=== PATIENT | female | born 1980 | race Hispanic/Latino ===

== ENCOUNTER 2023-06-22 23:13 | Emergency (ER) | payer OTHER ==
[~2023-06-22] VITALS: Ht 154.9 cm; Wt 98.4 kg
[2023-06-22 23:42] LABS: RAPID GROUP A STREP negative (NEGATIVE)
[2023-06-22 23:50] LABS: SARS-CoV-2, RNA, NAAT NEGATIVE SARS CoV-2 (NEGATIVE)
[2023-06-22 23:51] LABS: INFLUENZA TYPE A Negative For Type A (NEGATIVE); INFLUENZA TYPE B Negative For Type B (NEGATIVE)
[2023-06-23] MEDS: LORATADINE/PSEUDOEPHED 5/120 MG 1 EACH TAB.SR.12H PO SCH
[2023-06-23] MEDS ORDERED: PSEUDOEPHEDRINE HCL 30 MG TAB PO SCH
[2023-06-23] MEDS ORDERED: LORA-868 PO (00:08)
[2023-06-23] MEDS ORDERED: IBUP-2077 PO (00:08)
[2023-06-23] MEDS ORDERED: CORTSOL AS (00:15)
[2023-06-23] MEDS: IBUPROFEN 800 MG TAB PO ONE (00:17)
[2023-06-23] MEDS: PSEUDOEPHEDRINE HCL 30 MG TAB PO SCH (00:17)
[2023-06-23] MEDS: ACETAMINOPHEN WITH CODEINE 1 TAB TAB PO ONE (00:38)
[2023-06-23 00:41] VITALS: BP 142/92; PULSE 88; RESP 16; O2SAT 99
== END 2023-06-23 00:42 | disposition home or self-care (01) ==
LOC: EDH 23:13
DX: J06.9 Acute upper respiratory infection, unspecified (principal); H92.02 Otalgia, left ear; I10 Essential (primary) hypertension; E11.9 Type 2 diabetes mellitus without complications; E78.00 Pure hypercholesterolemia, unspecified; Z20.822 Contact with and (suspected) exposure to COVID-19; Z90.89 Acquired absence of other organs; Z98.890 Other specified postprocedural states
CPT/HCPCS: 87635; 87804; 87880

== ENCOUNTER 2023-06-29 11:04 | Emergency (ER) | payer OTHER ==
[~2023-06-29] VITALS: Ht 154.9 cm; Wt 98.0 kg
[~2023-06-29 11:04] MED LIST: CORTSOL AS; IBUP-2077 PO; LORA-868 PO
[2023-06-29 13:45] LABS: BASOPHILS # (AUTO) 0.07 K/uL (0.00-0.20); BASOPHILS % (AUTO) 0.6 % (0.0-5.0); EOSINOPHILS # (AUTO) 0.31 K/uL (0.00-0.70); EOSINOPHILS % (AUTO) 2.7 % (0.0-8.0); HEMATOCRIT 43.1 % (36-48); LYMPHOCYTES # (AUTO) 3.6 K/uL (1.0-4.8); LYMPHOCYTES % (AUTO) 31.6 % (21.0-51.0); MEAN CORPUSCULAR HEMOGLOBIN 30.1 pg (27.0-33.0); MEAN CORPUSCULAR HGB CONC 34.1 g/dL (32.0-36.0); MEAN CORPUSCULAR VOLUME 88.1 fL (79-99); MONOCYTES # (AUTO) 0.8 K/uL (0.1-1.0); MONOCYTES % (AUTO) 7.3 % (3.0-13.0); NEUTROPHILS # (AUTO) 6.5 K/uL (1.8-7.7); NEUTROPHILS % (AUTO) 56.9 % (40.0-77.0); PLATELET COUNT (AUTO) 377 K/uL (130-400); RED BLOOD CELL COUNT(AUTO) 4.89 MIL/uL (4.00-5.50); RED CELL DISTRIBUTION WIDTH 13.2 % (11.0-15.5); WHITE BLOOD COUNT (AUTO) 11.5 K/uL (4.8-10.8)
[2023-06-29 13:57] LABS: CREATININE 0.5 mg/dL (0.5-1.0)
[2023-06-29 14:01] LABS: APPEARANCE,URINE CLEAR (CLEAR); BILIRUBIN,URINE NEGATIVE (NEGATIVE); COLOR,URINE LIGHT-YELLOW (YELLOW); GLUCOSE, URINE (UA) 300 mg/dL (NEGATIVE); KETONES,URINE NEGATIVE (NEGATIVE); LEUKOCYTE ESTERASE ,URINE NEGATIVE Leu/uL (NEGATIVE); NITRATE,URINE NEGATIVE (NEGATIVE); PH,URINE 6.5 (5.0-8.0); PROTEIN,URINE NEGATIVE (NEGATIVE); UROBILINOGEN,URINE 0.2 mg/dL (0.2-1.0)
[2023-06-29 14:02] LABS: BILIRUBIN,TOTAL 0.4 mg/dL (0.2-1.0); MAGNESIUM 2.1 mg/dL (1.80-2.40); TOTAL PROTEIN, SERUM 8.1 g/dL (6.0-8.3)
[2023-06-29 14:03] LABS: HCG,QUALITATIVE URINE NEGATIVE (NEGATIVE)
[2023-06-29 14:05] LABS: ADD UA MICROSCOPIC YES
[2023-06-29 14:08] LABS: MUCUS,URINE RARE LPF (None Seen); SQUAMOUS EPITHELIAL CELL,UR RARE /HPF (0-2); WBC,URINE 0-1 /HPF (0-1)
[2023-06-29 14:14] LABS: B-TYPE NATRIURETIC PEPTIDE < 5 pg/mL (0-100)
[2023-06-29] MEDS ORDERED: LOSA25TA41 PO (15:14)
[2023-06-29] MEDS ORDERED: ATOR40TA69 PO (15:14)
[2023-06-29 15:21] VITALS: BP 141/88; PULSE 80; RESP 16; O2SAT 97
== END 2023-06-29 15:26 | disposition home or self-care (01) ==
LOC: EDH 11:04
DX: F41.9 Anxiety disorder, unspecified (principal); Z76.0 Encounter for issue of repeat prescription; I10 Essential (primary) hypertension; E11.9 Type 2 diabetes mellitus without complications; E78.00 Pure hypercholesterolemia, unspecified; E66.9 Obesity, unspecified; Z87.59 Personal history of other complications of pregnancy, childbirth and the puerperium; Z98.51 Tubal ligation status; Z90.89 Acquired absence of other organs; Z98.890 Other specified postprocedural states
CPT/HCPCS: 36415; 71045; 80053; 81001; 81025; 83735; 83880; 84484; 85025; 93005

== ENCOUNTER 2023-11-10 22:38 | Emergency (ER) | payer MEDICAID ==
[~2023-11-10] VITALS: Ht 154.9 cm; Wt 97.1 kg
[~2023-11-10 22:38] MED LIST changes: +ATOR40TA69 PO; +LOSA25TA41 PO
[2023-11-10 23:32] LABS: BASOPHILS # (AUTO) 0.07 K/uL (0.00-0.20); BASOPHILS % (AUTO) 0.6 % (0.0-5.0); EOSINOPHILS # (AUTO) 0.21 K/uL (0.00-0.70); EOSINOPHILS % (AUTO) 1.9 % (0.0-8.0); HEMATOCRIT 39.6 % (36-48); IMMATURE GRANULOCYTE ABSOLUTE 0.11 K/uL (0-1); LYMPHOCYTES # (AUTO) 1.7 K/uL (1.0-4.8); LYMPHOCYTES % (AUTO) 14.8 % (21.0-51.0); MEAN CORPUSCULAR HEMOGLOBIN 31.4 pg (27.0-33.0); MEAN CORPUSCULAR HGB CONC 35.6 g/dL (32.0-36.0); MEAN CORPUSCULAR VOLUME 88.2 fL (79-99); MONOCYTES # (AUTO) 0.8 K/uL (0.1-1.0); MONOCYTES % (AUTO) 7.2 % (3.0-13.0); NEUTROPHILS # (AUTO) 8.4 K/uL (1.8-7.7); NEUTROPHILS % (AUTO) 74.5 % (40.0-77.0); PLATELET COUNT (AUTO) 344 K/uL (130-400); RED BLOOD CELL COUNT(AUTO) 4.49 MIL/uL (4.00-5.50); RED CELL DISTRIBUTION WIDTH 12.4 % (11.0-15.5); WHITE BLOOD COUNT (AUTO) 11.3 K/uL (4.8-10.8)
[2023-11-10 23:50] LABS: ALBUMIN 3.4 g/dL (3.5-5.0); BILIRUBIN,TOTAL 0.5 mg/dL (0.2-1.0); CREATININE 0.7 mg/dL (0.5-1.0); POTASSIUM 3.8 mmol/L (3.5-5.1); TOTAL PROTEIN, SERUM 7.2 g/dL (6.0-8.3)
[2023-11-10] MEDS: LACTATED RINGERS 1000ML 957 ML IV ONE (23:50)
[2023-11-10] MEDS: PROCHLORPERAZINE 10MG/2ML INJ IV ONE (23:50)
[2023-11-10] MEDS: DiphenhydrAMINE HCL 50 MG/ML VIAL IV ONE (23:50)
[2023-11-10] MEDS: KETOROLAC 30MG VIAL (30MG/ML) IVP ONE (23:50)
[2023-11-10 23:53] LABS: ADD UA MICROSCOPIC YES; APPEARANCE,URINE CLEAR (CLEAR); BILIRUBIN,URINE NEGATIVE (NEGATIVE); COLOR,URINE LIGHT-YELLOW (YELLOW); GLUCOSE, URINE (UA) NEGATIVE (NEGATIVE); KETONES,URINE NEGATIVE (NEGATIVE); LEUKOCYTE ESTERASE ,URINE NEGATIVE Leu/uL (NEGATIVE); NITRATE,URINE NEGATIVE (NEGATIVE); OCCULT BLOOD,URINE MODERATE (NEGATIVE); PROTEIN,URINE NEGATIVE (NEGATIVE); UROBILINOGEN,URINE 0.2 mg/dL (0.2-1.0)
[2023-11-10 23:54] LABS: BACTERIA,URINE RARE /HPF (None Seen); MUCUS,URINE RARE LPF (None Seen); SQUAMOUS EPITHELIAL CELL,UR RARE /HPF (0-2); WBC,URINE 0-1 /HPF (0-1)
[2023-11-11 01:00] VITALS: BP 124/86; PULSE 74; RESP 20; O2SAT 97
== END 2023-11-11 01:01 | disposition home or self-care (01) ==
LOC: EDH 22:38
DX: U07.1 COVID-19 (principal); R51.9 Headache, unspecified; I10 Essential (primary) hypertension; E11.9 Type 2 diabetes mellitus without complications; E78.00 Pure hypercholesterolemia, unspecified; Z79.899 Other long term (current) drug therapy; Z90.89 Acquired absence of other organs; Z98.890 Other specified postprocedural states
CPT/HCPCS: 99284; 96374; 96375; 96361; 80053; 85025; 81001; 36415; J7120; J1200; J0780; J1885

== ENCOUNTER 2023-12-15 23:09 | Emergency (ER) | payer MEDICAID ==
[~2023-12-15] VITALS: Ht 154.9 cm; Wt 97.1 kg
[2023-12-15 23:29] LABS: BASOPHILS # (AUTO) 0.11 K/uL (0.00-0.20); BASOPHILS % (AUTO) 0.8 % (0.0-5.0); EOSINOPHILS # (AUTO) 0.39 K/uL (0.00-0.70); EOSINOPHILS % (AUTO) 2.9 % (0.0-8.0); HEMATOCRIT 41.8 % (36-48); IMMATURE GRANULOCYTE ABSOLUTE 0.13 K/uL (0-1); LYMPHOCYTES # (AUTO) 4.9 K/uL (1.0-4.8); LYMPHOCYTES % (AUTO) 36.9 % (21.0-51.0); MEAN CORPUSCULAR HEMOGLOBIN 30.5 pg (27.0-33.0); MEAN CORPUSCULAR HGB CONC 34.2 g/dL (32.0-36.0); MEAN CORPUSCULAR VOLUME 89.1 fL (79-99); MONOCYTES # (AUTO) 0.8 K/uL (0.1-1.0); NEUTROPHILS % (AUTO) 52.4 % (40.0-77.0); PLATELET COUNT (AUTO) 361 K/uL (130-400); RED BLOOD CELL COUNT(AUTO) 4.69 MIL/uL (4.00-5.50); RED CELL DISTRIBUTION WIDTH 12.9 % (11.0-15.5); WHITE BLOOD COUNT (AUTO) 13.3 K/uL (4.8-10.8)
[2023-12-15 23:35] LABS: CREATININE 0.7 mg/dL (0.5-1.0); POTASSIUM 3.6 mmol/L (3.5-5.1)
[2023-12-15 23:39] LABS: INR 0.99 (0.85-1.15); PROTHROMBIN TIME 10.7 SEC (9.6-11.6)
[2023-12-15 23:40] LABS: PARTIAL THROMBOPLASTIN TIME 25.6 SEC (26.3-35.5)
[2023-12-16 00:06] LABS: B-TYPE NATRIURETIC PEPTIDE < 5 pg/mL (0-100)
[2023-12-16 00:21] LABS: APPEARANCE,URINE CLEAR (CLEAR); BILIRUBIN,URINE NEGATIVE (NEGATIVE); COLOR,URINE LIGHT-YELLOW (YELLOW); GLUCOSE, URINE (UA) NEGATIVE (NEGATIVE); KETONES,URINE NEGATIVE (NEGATIVE); LEUKOCYTE ESTERASE ,URINE NEGATIVE Leu/uL (NEGATIVE); NITRATE,URINE NEGATIVE (NEGATIVE); OCCULT BLOOD,URINE SMALL (NEGATIVE); PROTEIN,URINE NEGATIVE (NEGATIVE); UROBILINOGEN,URINE 0.2 mg/dL (0.2-1.0)
[2023-12-16 00:25] LABS: ADD UA MICROSCOPIC YES; BACTERIA,URINE None Seen /HPF (None Seen); SQUAMOUS EPITHELIAL CELL,UR Rare /HPF (0-2); WBC,URINE 0-1 /HPF (0-1)
[2023-12-16 00:26] LABS: MUCUS,URINE Rare LPF (None Seen)
[2023-12-16 00:30] LABS: HCG,QUALITATIVE URINE NEGATIVE (NEGATIVE)
[2023-12-16 00:49] LABS: AMPHET/METH SCREEN,URINE NEGATIVE (NEGATIVE); BARBITURATE SCREEN, URINE NEGATIVE (NEGATIVE); BENZODIAZEPINES SCREEN,URINE NEGATIVE (NEGATIVE); CANNABINOID SCREEN,URINE NEGATIVE (NEGATIVE); COCAINE SCREEN,URINE NEGATIVE (NEGATIVE); OPIATE SCREEN,URINE NEGATIVE (NEGATIVE); PHENCYCLIDINE SCREEN,URINE NEGATIVE (NEGATIVE)
[2023-12-16] MEDS: ketOROlac 30MG VIAL (30MG/ML) IVP ONE (00:57)
[2023-12-16] MEDS: 0.9%NACL 1000ML 1,000 ML IV ONE (00:57)
[2023-12-16 02:26] VITALS: BP 138/81; PULSE 92; RESP 18; TEMP 98.3; O2SAT 99
== END 2023-12-16 02:27 | disposition home or self-care (01) ==
LOC: EDH 23:09
DX: R00.2 Palpitations (principal); Z20.822 Contact with and (suspected) exposure to COVID-19; D72.829 Elevated white blood cell count, unspecified; E11.65 Type 2 diabetes mellitus with hyperglycemia; R07.89 Other chest pain; R06.02 Shortness of breath; F41.9 Anxiety disorder, unspecified; R06.00 Dyspnea, unspecified; R05.9 Cough, unspecified; E11.9 Type 2 diabetes mellitus without complications; I10 Essential (primary) hypertension; E78.00 Pure hypercholesterolemia, unspecified; E66.9 Obesity, unspecified; Z68.30 Body mass index [BMI] 30.0-30.9, adult; F17.210 Nicotine dependence, cigarettes, uncomplicated; Z98.890 Other specified postprocedural states; Z90.89 Acquired absence of other organs
CPT/HCPCS: 99285; 71045; 87426; 83735; 84484; 80048; 83880; 80305; 85025; 85610; 85730; 81025; 36415; 93005; 81001; 96374; J7030; J1885

== ENCOUNTER 2024-02-07 06:58 | Day surgery (SDC) | payer MEDICAID ==
[2024-02-03 08:57] LABS: BASOPHILS # (AUTO) 0.06 K/uL (0.00-0.20); BASOPHILS % (AUTO) 0.6 % (0.0-5.0); EOSINOPHILS # (AUTO) 0.31 K/uL (0.00-0.70); EOSINOPHILS % (AUTO) 3.2 % (0.0-8.0); HEMATOCRIT 41.6 % (36-48); IMMATURE GRANULOCYTE ABSOLUTE 0.06 K/uL (0-1); LYMPHOCYTES # (AUTO) 2.6 K/uL (1.0-4.8); LYMPHOCYTES % (AUTO) 27.1 % (21.0-51.0); MEAN CORPUSCULAR HEMOGLOBIN 30.1 pg (27.0-33.0); MEAN CORPUSCULAR HGB CONC 33.9 g/dL (32.0-36.0); MEAN CORPUSCULAR VOLUME 88.7 fL (79-99); MONOCYTES # (AUTO) 0.5 K/uL (0.1-1.0); MONOCYTES % (AUTO) 5.5 % (3.0-13.0); PLATELET COUNT (AUTO) 391 K/uL (130-400); RED BLOOD CELL COUNT(AUTO) 4.69 MIL/uL (4.00-5.50); WHITE BLOOD COUNT (AUTO) 9.6 K/uL (4.8-10.8)
[2024-02-03 09:00] VITALS: BP 129/73; PULSE 78; RESP 19; TEMP 98.2
[2024-02-07] VITALS (20 sets, daily range): BP systolic 112–143; BP diastolic 49–94; PULSE 63–85; RESP 10–20; TEMP 97.1–97.7
[~2024-02-07] VITALS: Ht 154.9 cm; Wt 93.6 kg
[~2024-02-07 06:58] MED LIST changes: +ALBU18HF7 IH; -ATOR40TA69 PO; -CORTSOL AS; +ERGO500093 PO; -IBUP-2077 PO; +LAMO25TA9 PO; -LORA-868 PO; +METF-444 PO; +SERT-439 PO
[2024-02-07] MEDS: ceFAZolin SODIUM 2 GM VIAL IVPB SCH (07:00)
[2024-02-07 07:47] LABS: CREATININE 0.5 mg/dL (0.5-1.0); POTASSIUM 4.1 mmol/L (3.5-5.1)
[2024-02-07] MEDS ORDERED: BUPIvacaine HCL/EPINEPHrine/PF 0.25% 10ML VIAL IJ ONE (07:51)
[2024-02-07] MEDS: 0.9%NACL 1000ML 1,000 ML IV ONE (07:56)
[2024-02-07] MEDS: ceFAZolin SODIUM 2 GM VIAL ONE (07:56)
[2024-02-07] MEDS ORDERED: FAMOTIDINE 20MG VIAL IV ONE (09:38)
[2024-02-07] MEDS ORDERED: acetaMINOPHEN 100 ML ONE (09:38)
[2024-02-07] MEDS ORDERED: ketaMINE 50MG/ML SYRINGE 50 MG/ML DISP.SYRIN ONE (09:39)
[2024-02-07] MEDS ORDERED: LIDOCAINE PF 100MG/5ML (2%) SYRINGE 5ML ONE (09:39)
[2024-02-07] MEDS ORDERED: proPOFol 10 MG/ML 20ML VIAL IV ONE (09:39)
[2024-02-07] MEDS ORDERED: rocuRONium bROMide 10MG/1ML 5ML VL ONE ×2 (09:40→10:41)
[2024-02-07] MEDS ORDERED: FENTanyl CITRate PF 50 MCG/1 ML 2ML VIAL ONE (09:40)
[2024-02-07] MEDS ORDERED: dexaMETHasone SOD PHOSPHATE 10MG/ML 1ML VIAL ONE (09:50)
[2024-02-07] MEDS ORDERED: ondanSETRON 4MG INJ ONE (09:51)
[2024-02-07] MEDS: ceFAZolin SODIUM 2 GM VIAL IVPB ONE (10:00)
[2024-02-07] MEDS ORDERED: TRAM-543 PO (10:03)
[2024-02-07] MEDS ORDERED: GLYCOPYRROLATE 0.2 MG/ML 5 ML VIAL ONE (10:55)
[2024-02-07] MEDS ORDERED: NEOSTIGMINE METHYLSULFATE 1MG/ML IV ONE (10:55)
[2024-02-07] MEDS ORDERED: SUGAMMADEX SODIUM 200 MG/2 ML VIAL IV ONE (11:05)
[2024-02-07] MEDS: FENTanyl CITRate PF 50 MCG/1 ML 2ML VIAL ONE (11:33)
[2024-02-07] MEDS: MEPERIDINE-PF 25 MG/ML SYG ONE (11:41)
--- NOTE | 2024-02-07 12:20 | OP ---
Operative Note: DATE OF PROCEDURE: 02/07/24 SURGEON: GEETA KANG MD ENGRAVER APPRENTICE DECORATIVE: [[facility] [place] staff] ANESTHESIA: [General] PREOPERATIVE DIAGNOSIS: [Symptomatic cholelithiasis] POSTOPERATIVE DIAGNOSIS: [Symptomatic cholelithiasis] SYNOPSIS: [Extremely large fatty bulky liver, central obesity] PROCEDURE: [Laparoscopic cholecystectomy] ESTIMATED BLOOD LOSS: [10 mL] INDICATIONS: [This is a 43-year-old female with symptomatic cholelithiasis. Imaging studies confirmed the diagnosis. A laparoscopic cholecystectomy was indicated. Prior to the procedure informed consent was obtained which included a discussion about bleeding, infection, bile leak, bile duct injury and injury to surrounding viscera.] DESCRIPTION OF PROCEDURE: [The patient was taken to the operating room and placed on the operating table in supine position. Next, general anesthesia was induced and they were intubated. Their abdomen was prepped and draped in a sterile fashion. Afterwards a timeout was called. The patient's identity, procedure, preoperative antibiotics and SCDs were all confirmed. I insufflated the abdomen with a Veress needle. Next, I entered the intra-abdominal cavity through a 12 mm epigastric incision using a 12 mm Optiview port with a 0 degree 10 mm scope. I placed a 3 additional ports in the following configuration: A 5 mm supraumbilical port and two 5 mm right subcostal ports. Next, I proceeded to remove the gallbladder. I used a harmonic scalpel to dissect the gallbladder off the liver bed fossa in a dome down fashion. I dissected down to the infundibulum. I skeletonized the cystic duct. The cystic artery was taken with the harmonic scalpel. I identified my critical my critical angle. I used PDS Endoloop to encircle the cystic duct. I transected the cystic duct with the harmonic scalpel and placed the specimen in an Endo Catch bag. The specimen was passed off. I inspected the gallbladder fossa. No active bleeding was seen. I closed the correction the pneumoperitoneum was evacuated. The skin incisions were closed with 4-0 Monocryl. 0.25% percent Marcaine with epinephrine was injected into the incision sites. Dermabond was applied. The sponge needle instrument counts were accurate. The patient was extubated and taken to recovery room in stable condition.] GEETA KANG MD Feb 07, 2024 12:20
--- NOTE | 2024-02-07 13:49 | NUR ---
Patient aox4. Denies c/o pain or discomfort. Surgical dressing clean, dry and intact. Voiced understanding to surgical site precautions and follow up expectations. Ambulated to bathroom with standby assist. Voided large amount of clear urine. PIV discontinued with catheter tip intact. Patient emotional lashing out and cursing at . Emotional support provided. He remained quiet. Full and complete Discharge instructions given to Patient and . All questions answered. W/C to POV with to Home.
== END 2024-02-07 13:40 | disposition home or self-care (01) ==
LOC: DAH 06:58
PROVIDERS: ATTEND Surgery
DX: K80.10 Calculus of gallbladder with chronic cholecystitis without obstruction (principal); K76.0 Fatty (change of) liver, not elsewhere classified; G47.33 Obstructive sleep apnea (adult) (pediatric); I10 Essential (primary) hypertension; E11.9 Type 2 diabetes mellitus without complications; F31.9 Bipolar disorder, unspecified; F41.9 Anxiety disorder, unspecified; E78.00 Pure hypercholesterolemia, unspecified; Z86.73 Personal history of transient ischemic attack (TIA), and cerebral infarction without residual deficits; Z90.89 Acquired absence of other organs; Z79.899 Other long term (current) drug therapy
CPT/HCPCS: 84703; 85025; 36415 ×2; 47562; 88304; 80048; 82948 ×2; 81025; A6260; A4663; J7030 ×2; A4215 ×2; J3010 ×2; J1100; J3490 ×5; J2003; J2405; J2710; J2175; J0690 ×2; A4649; A4222; A4221; A4216 ×2; A4223 ×2; A4600; S0028; J2704

== ENCOUNTER 2024-12-08 14:59 | Emergency (ER) | payer SELFPAY ==
[~2024-12-08] VITALS: Ht 154.9 cm; Wt 93.4 kg
[~2024-12-08 14:59] MED LIST changes: +LAMO-23 PO; -LAMO25TA9 PO; +TRAM-543 PO
[2024-12-08 15:53] LABS: HCG,QUALITATIVE URINE NEGATIVE (NEGATIVE)
[2024-12-08 16:00] LABS: GLUCOSE, URINE (UA) 50 mg/dL (NEGATIVE); LEUKOCYTE ESTERASE ,URINE 500 Leu/uL (NEGATIVE); NITRATE,URINE NEGATIVE (NEGATIVE); OCCULT BLOOD,URINE SMALL (NEGATIVE); SQUAMOUS EPITHELIAL CELL,UR MANY /HPF (0-2)
[2024-12-08 16:01] LABS: APPEARANCE,URINE HAZY (CLEAR)
[2024-12-08 16:08] LABS: IMMATURE GRANULOCYTE ABSOLUTE 0.09 K/uL (0-1); NUCLEATED RED BLOOD CELLS 0.0 % (0.0-0.19); PLATELET COUNT (AUTO) 351 K/uL (130-400); RED BLOOD CELL COUNT(AUTO) 4.81 MIL/uL (4.00-5.50); RED CELL DISTRIBUTION WIDTH 12.9 % (11.0-15.5); WHITE BLOOD COUNT (AUTO) 15.1 K/uL (4.8-10.8)
[2024-12-08 16:15] LABS: CREATININE 0.6 mg/dL (0.5-1.0); GLOMERULAR FILTR. RATE CALC 113.0 mL/min (>90); GLUCOSE,RANDOM 129.0 mg/dL (70-105); SODIUM SERUM 139.0 mmol/L (136-145); UREA NITROGEN, BLOOD 8.0 mg/dL (7-18)
--- NOTE | 2024-12-08 16:38 | ERN ---
General Chief Complaint: Multiple Complaints Stated Complaint: UTI SYMPTOMS AND LT KNEE PAIN Time Seen by MD: 15:04 Source: patient History of Present Illness Initial Comments Patient is a 44-year-old female coming in with multiple complaints. Per patient she has been having dysuria for a couple of days. Along with the she states that two days ago she bent over got up felt the pop in her knee. Also states that she has been having previous issues hernia that Allergies: Coded Allergies: chlorhexidine (Unverified Adverse Reaction, Unknown, SWELLING, 02/07/24) glycerin (Unverified Adverse Reaction, Unknown, SWELLING, 02/07/24) hydroxyethylcellulose (Unverified Adverse Reaction, Unknown, SWELLING, 02/07/24) Home Meds Active Scripts Tramadol HCl/Acetaminophen (Tramadol-Acetaminophn 37.5-325) 37.5 Mg-325 Mg T ablet, 1 TAB PO Q4HPRN PRN for pain for 2 Days, #12 TAB 0 Refills Prov:GEETA KANG MD 02/07/24 Losartan Potassium (Losartan Potassium) 25 Mg Tablet, 25 MG PO DAILY for 14 Days, #14 TAB Prov:JUAN M DOMINGUEZ 06/29/23 Reported Medications Albuterol Sulfate (Ventolin Hfa) 90 Mcg Hfa.aer.ad, 2 PUFF IH Q4HPRN PRN for wheezing for 30 Days, #18 GM 0 Refills 02/03/24 Sertraline HCl (Sertraline HCl) 50 Mg Tablet, 50 MG PO HS, TAB 02/03/24 Ergocalciferol (Vitamin D2) (Vitamin D2) 1,250 Mcg (18744 Unit) Capsule, 1 CAP PO QWEEK for 28 Days, #4 CAP 0 Refills 02/03/24 Metformin HCl (Metformin HCl) 500 Mg Tablet, 1 TAB PO BID for 30 Days, #60 TAB 0 Refills 02/03/24 Lamotrigine (Lamotrigine) 25 Mg Tablet, 25 MG PO PM, TAB 02/03/24 Past Medical History Past Medical History: Anxiety, Bipolar, Diabetes-Type II, High Cholesterol, Hypertension Medical History Other: obesity Past Surgical History: Hysterectomy, Tonsillectomy, Cholecystectomy, Surgical History Other: ECTOPIC Family History Family History: Negative Social History Social History: Smokers, Lives with family Female( History) History: Not Applicable ROS Dictation CONSTITUTIONAL: No chills, no fever, no weakness, no diaphoresis, no malaise. HEAD/FACE: No signs of trauma. EENT: No eye pain, no blurred vision, no tearing, no double vision, no ear pain, no ear discharge, no nose pain, no nasal congestion, no throat pain, no throat swelling, no mouth pain. RESPIRATORY: No cough, no orthopnea, no SOB, no stridor, no wheezing. CARDIOVASCULAR: No chest pain, no edema, no palpitations, no syncope. GASTROINTESTINAL/ABDOMINAL: No abdominal pain, no constipation, no diarrhea, no nausea, no vomiting. GENITOURINARY: No abnormal discharge, no dysuria, no frequent urination, no hematuria. No complaints of pain in the genitals. MUSCULOSKELETAL: No back pain, no gout, joint pain, no joint swelling, no muscle pain, no muscle stiffness, no neck pain. INTEGUMENTARY: No change in color, no change in hair/nails, no dryness, no lesion, no lumps, no rash. NEUROLOGICAL/PSYCH: No anxiety, not depressed, no emotional problem, no headache, no numbness, no pre-existing deficit, no history of seizures, no tremors, no weakness. HEMATOLOGIC/LYMPHATIC: Not anemic, no history of blood clots, no apparent bleeding, no bruising, glands not swollen. All Systems Negative, Except as Noted. Physical Exam Physical Exam Dictation VITAL SIGNS: Reviewed. GENERAL APPEARANCE: Alert, oriented x3, no acute distress, obese. HEAD AND FACE: Non-traumatic. EYES: PERRL, pink conjunctivas, eyelid no trauma, anterior chamber clear. EARS: Pinnas intact and no signs of trauma or erythema. Ear canals clear and no discharge. TMs no erythema. NOSE: No discharge, no bleeding. OROPHARYNX: Mouth normal, teeth no caries, tongue pink. Pharynx clear, no erythema. Tonsils no exudates, no abscesses noted. Mucous membrane moist. NECK: Supple, non-tender, no thyromegaly, no masses, no JVD, no bruits. BREAST: Deferred. CHEST: No tenderness, no crepitus, no paradoxical movement, no retractions. LUNGS: Clear, well-ventilated, symmetric, no rales, no wheezing, no rhonchi, no stridor, good breath sounds bilaterally. HEART: Regular rate, regular rhythm, no murmur, no gallops. VASCULAR: No peripheral edema. ABDOMEN: Soft, positive bowel sounds, nondistended, no guarding, nontender, no rebound, no masses no hepatomegaly, no splenomegaly, no Jarvis's sign, no hernias. RECTAL: Deferred. GENITAL: Deferred. NEUROLOGICAL: Normal speech, gross motor function intact, gross sensory function intact. MUSCULOSKELETAL: Neck nontender, full range of motion, back nontender, full range of motion. EXTREMITIES: Nontender, full range of motion. Left knee tenderness on palpation SKIN: Color pink, dry, no turgor, no rash, no lacerations, no abrasions, no contusions. LYMPHATICS: Deferred. Results Laboratory and Microbiology Lab and Micro Result Laboratory Tests Test 12/08/24 15:02 12/08/24 16:00 Urine Color YELLOW (YELLOW) Urine Appearance HAZY (CLEAR) Urine pH 5.5 (5.0-8.0) Urine Specific [place] 1.022 (1.001-1.031) Urine Protein 20 mg/dL (NEGATIVE) H Urine Glucose (UA) 50 mg/dL (NEGATIVE) H Urine Ketones NEGATIVE mg/dL (NEGATIVE) Urine Occult Blood SMALL (NEGATIVE) H Urine Nitrate NEGATIVE (NEGATIVE) Urine Bilirubin NEGATIVE mg/dL (NEGATIVE) Urine Urobilinogen 0.2 mg/dL (0.2-1.0) Urine Leukocyte Esterase 500 Lesia/uL (NEGATIVE) H Urine RBC 26-50 /HPF (0-1) H Urine WBC TNTC /HPF (0-1) H Urine Squamous Epithelial Cells MANY /HPF (0-2) Urine Bacteria MOD /HPF (None Seen) Urine HCG, Qualitative NEGATIVE (NEGATIVE) White Blood Count 15.1 K/uL (4.8-10.8) H Red Blood Count 4.81 MIL/uL (4.00-5.50) Hemoglobin 14.9 g/dL (12.0-16.0) Hematocrit 42.5 % (36-48) Mean Corpuscular Volume 88.4 fL (79-99) Mean Corpuscular Hemoglobin 31.0 pg (27.0-33.0) Mean Corpuscular Hemoglobin Concent 35.1 g/dL (32.0-36.0) Red Cell Distribution Width 12.9 % (11.0-15.5) Platelet Count 351 K/uL (130-400) Mean Platelet Volume 9.7 fL (7.5-10.5) Immature Granulocyte % (Auto) 0.6 % (0-1) Neutrophils (%) (Auto) 72.2 % (40.0-77.0) Lymphocytes (%) (Auto) 20.2 % (21.0-51.0) L Monocytes (%) (Auto) 4.9 % (3.0-13.0) Eosinophils (%) (Auto) 1.4 % (0.0-8.0) Basophils (%) (Auto) 0.7 % (0.0-5.0) Neutrophils # (Auto) 10.9 K/uL (1.8-7.7) H Lymphocytes # (Auto) 3.1 K/uL (1.0-4.8) Monocytes # (Auto) 0.7 K/uL (0.1-1.0) Eosinophils # (Auto) 0.21 K/uL (0.00-0.70) Basophils # (Auto) 0.11 K/uL (0.00-0.20) Absolute Immature Granulocyte (auto 0.09 K/uL (0-1) Nucleated Red Blood Cells 0.0 % (0.0-0.19) Sodium Level 139 mmol/L (136-145) Potassium Level 3.7 mmol/L (3.5-5.1) Chloride Level 105 mmol/L (101-111) Carbon Dioxide Level 26 mmol/L (21-32) Blood Urea Nitrogen 8 mg/dL (7-18) Creatinine 0.6 mg/dL (0.5-1.0) Glomerular Filtration Rate Calc 113 mL/min (>90) Random Glucose 129 mg/dL (70-105) H Total Calcium 8.8 mg/dL (8.5-10.1) Labs Reviewed?: Yes MDM MDM: Differential diagnosis: UTI, knee strain, acute on chronic knee exacerbation Rationale: Tests considered and ordered secondary to shared decision making include: Previous outside records reviewed: Old ER visits. Risk of complication and/or morbidity or mortality of patient management: None Medications-Per medication reconciliation Need for hospitalization: Patient does not meet criteria for hospitalization. Need for emergency major/minor surgery: No Patient is a 44-year-old female coming in with multiple complaints. Per patient she has been having dysuria long with the she states that she has been having discomfort after she swat it in stood up and felt a strain in her left knee. Knee immobilizer in place. Patient will be discharged after receiving IV antibiotics and IV fluids. ED Course Orders Procedure Category Date Status Time Cbc With Differential LAB 12/08/24 Complete 15:04 Basic Metabolic Panel LAB 12/08/24 Complete 15:04 Urinalysis LAB 12/08/24 Complete W/Microscopic 15:04 ,Urine Test LAB 12/08/24 Complete 15:04 Culture Urine SELVIN 12/08/24 In Process 16:01 Ceftriaxone 1g Vial PHA 12/08/24 In Process (Rocephine 1g Inj) 17:00 0.9%Nacl 1000ml (Ns PHA 12/08/24 In Process 1000ml) 17:00 Knee Immobilizer MINE 12/08/24 In Process 16:39 Current Medications Medications (Trade) Dose Ordered Sig/Kathy Route PRN Reason Start Time Stop Time Status Last Admin Dose Admin Ceftriaxone Sodium (ROCEphine 1G INJ) 1 gm ONCE ONCE IVPB 12/08/24 17:00 12/08/24 17:01 Sodium Chloride 1,000 ml @ 0 mls/hr ONCE ONCE IV 12/08/24 17:00 12/08/24 17:01 Vital Signs Date Time Temp Pulse Resp B/P (MAP) Pulse Ox O2 Delivery O2 Flow Rate FiO2 12/08/24 15:01 98.4 109 20 141/96 98 Room Air DX & DISP Disposition: Discharge Decision to Admit Time: 16:51 Departure Impression: Primary Impression: Leukocytosis Additional Impression: UTI (urinary tract infection) Condition: Stable Scripts Cephalexin Monohydrate (Keflex) 500 Mg Cap 1 CAP PO BID for 10 Days, #20 CAP 0 Refills Prov: SLIME BANERJEE MD 12/08/24 Additional Instructions: FOLLOW-UP WITH PRIMARY CARE PROVIDER IN 1 TO 2 DAYS. TAKE MEDICATIONS DIRECTED HERE IN THE EMERGENCY ROOM. OKAY TO CONTINUE HOME MEDICATIONS UNLESS OTHERWISE DISCUSSED DURING YOUR VISIT IN THE EMERGENCY ROOM TODAY. RETURN TO YOUR NEAREST EMERGENCY ROOM IF SYMPTOMS WORSEN OR IF THERE IS NO IMPROVEMENT. CALL 911 IF YOU NEED IMMEDIATE ASSISTANCE. TAKE TYLENOL [id number] NEEDED AND IF NO CONTRAINDICATIONS ARE PRESENT. INCREASE ORAL HYDRATION. A WOUND CULTURE OR URINE CULTURE WAS ORDERED HERE IN THE EMERGENCY ROOM DEPARTMENT PLEASE FOLLOW-UP WITH PRIMARY CARE PROVIDER AND ADVISE THEM TO GET REPORTS FROM OUR FACILITY. IF YOU HAD ANY ARNOLDO WRAP/SPLINTS THAT WERE APPLIED HERE, PLEASE DO NOT REMOVE THEM UNTIL YOU SEE YOUR PRIMARY CARE OR SPECIALTY. Referrals: Referrals: ANKUSH HARDING DO (PCP) Time of Disposition: 16:52 SLIME BANERJEE MD Dec 08, 2024 16:37
[2024-12-08] MEDS ORDERED: CEPH500B PO (16:52)
[2024-12-08] MEDS: 0.9%NACL 1000ML 1,000 ML IV ONE (16:55)
[2024-12-08 17:09] VITALS: BP 131/85; PULSE 90; RESP 18; TEMP 98.4; O2SAT 98
--- NOTE | 2024-12-08 17:10 | NUR ---
READY FOR DISCHQARGE AFTER SHAHAB FLUIDS AND ABX
== END 2024-12-08 18:14 | disposition home or self-care (01) ==
LOC: EDH 14:59
DX: S86.912A Strain of unspecified muscle(s) and tendon(s) at lower leg level, left leg, initial encounter (principal); D72.829 Elevated white blood cell count, unspecified; N39.0 Urinary tract infection, site not specified; E78.00 Pure hypercholesterolemia, unspecified; F17.200 Nicotine dependence, unspecified, uncomplicated; F31.9 Bipolar disorder, unspecified; F41.9 Anxiety disorder, unspecified; I10 Essential (primary) hypertension; Z79.84 Long term (current) use of oral hypoglycemic drugs; E11.9 Type 2 diabetes mellitus without complications; E66.9 Obesity, unspecified; Z79.899 Other long term (current) drug therapy; Z87.59 Personal history of other complications of pregnancy, childbirth and the puerperium; Z90.49 Acquired absence of other specified parts of digestive tract; Z90.710 Acquired absence of both cervix and uterus; W18.39XA Other fall on same level, initial encounter; Y93.89 Activity, other specified; Y92.89 Other specified places as the place of occurrence of the external cause; Y99.8 Other external cause status
CPT/HCPCS: 99284; 96365; 29505; 80048; 85025; 87086; 81001; 81025; 36415; J7030; J0696

== ENCOUNTER 2025-03-19 11:02 | Emergency (ER) | payer MEDICAID ==
[~2025-03-19] VITALS: Ht 154.9 cm; Wt 90.7 kg
[~2025-03-19 11:02] MED LIST changes: +CEPH500B PO
[2025-03-19 11:22] VITALS: BP 128/83; PULSE 93; RESP 18; TEMP 97.9; O2SAT 98
[2025-03-19] MEDS ORDERED: CARB-283 OP (11:24)
[2025-03-19] MEDS ORDERED: FAMC500T8 PO (11:24)
--- NOTE | 2025-03-19 11:25 | ERN ---
ED Note History of Present Illness Stated Complaint: FACIAL DROOP Chief Complaint: Other Problems Time Seen by MD: 11:07 Dictation: PATIENT IS A 44-YEAR-OLD FEMALE COMING IN TODAY WITH COMPLAINTS OF RIGHT FACIAL NUMBNESS WITH WEAKNESS SHE HAS HAD SINCE TUESDAY. SHE DENIES ANY HEADACHE NO CHEST PAIN NO BACK PAIN. SHE HAS A AN NIH OF 0 OTHER THAN A RIGHT 7TH NERVE PALSY. SPEECH IS CLEAR TONGUE IS MIDLINE. EXTREMITIES 5/5 BILATERALLY SHE SAW HER PRIMARY CARE DOCTOR ON TUESDAY AND WAS DIAGNOSED WITH CORREIA'S PALSY WAS TREATED WITH PREDNISONE HOWEVER THERE WAS NO ACYCLOVIR PRESCRIBED NOR WAS THERE ANY TEACHING ON CORNEAL SPARING. Allergies: Coded Allergies: chlorhexidine (Unverified Adverse Reaction, Unknown, SWELLING, 02/07/24) glycerin (Unverified Adverse Reaction, Unknown, SWELLING, 02/07/24) hydroxyethylcellulose (Unverified Adverse Reaction, Unknown, SWELLING, 02/07/24) Home Meds Active Scripts Cephalexin Monohydrate (Keflex) 500 Mg Cap, 1 CAP PO BID for 10 Days, #20 CAP 0 Refills Prov:SLIME BANERJEE MD 12/08/24 Tramadol HCl/Acetaminophen (Tramadol-Acetaminophn 37.5-325) 37.5 Mg-325 Mg Tablet, 1 TAB PO Q4HPRN PRN for pain for 2 Days, #12 TAB 0 Refills Prov:GEETA KANG MD 02/07/24 Losartan Potassium (Losartan Potassium) 25 Mg Tablet, 25 MG PO DAILY for 14 Days, #14 TAB Prov:JUAN M DOMINGUEZ [facility] 06/29/23 Reported Medications Albuterol Sulfate (Ventolin Hfa) 90 Mcg Hfa.aer.ad, 2 PUFF IH Q4HPRN PRN for wheezing for 30 Days, #18 GM 0 Refills 02/03/24 Sertraline HCl (Sertraline HCl) 50 Mg Tablet, 50 MG PO HS, TAB 02/03/24 Ergocalciferol (Vitamin D2) (Vitamin D2) 1,250 Mcg (28933 Unit) Capsule, 1 CAP PO QWEEK for 28 Days, #4 CAP 0 Refills 02/03/24 Metformin HCl (Metformin HCl) 500 Mg Tablet, 1 TAB PO BID for 30 Days, #60 TAB 0 Refills 02/03/24 Lamotrigine (Lamotrigine) 25 Mg Tablet, 25 MG PO PM, TAB 02/03/24 Past Medical History Past Medical History: Anxiety, Bipolar, Diabetes-Type II, High Cholesterol, Hypertension Additional Past Medical Hx: obesity Surgical History: Hysterectomy, Tonsillectomy, Cholecystectomy, Surgical History Other: ECTOPIC Family History: Negative Social History: Smokers, Lives with family History: Not Applicable RN Note Reviewed/Agreed w/PFSH: Yes Review of System Dictation CONSTITUTIONAL: NEGATIVE EXCEPT FOR HPI HEAD/FACE: NEGATIVE EXCEPT FOR HPI EENT: NEGATIVE EXCEPT FOR HPI RESPIRATORY: NEGATIVE EXCEPT FOR HPI GASTROINTESTINAL/ABDOMINAL: NEGATIVE EXCEPT FOR HPI GENITOURINARY: NEGATIVE EXCEPT FOR HPI MUSCULOSKELETAL: NEGATIVE EXCEPT FOR HPI INTEGUMENTARY: NEGATIVE EXCEPT FOR HPI NEUROLOGICAL/PSYCH: NEGATIVE EXCEPT FOR HPI LEFT FACIAL PALSY HEMATOLOGIC/LYMPHATIC: NEGATIVE EXCEPT FOR HPI ALL SYSTEMS NEGATIVE, EXCEPT NOTED ABOVE. 13 POINT REVIEW OF SYSTEMS ASSESSED AND ALL NEGATIVE EXCEPT FOR ABOVE. Initial Vital Sign VS Vital Signs Date Time Temp Pulse Resp B/P (MAP) Pulse Ox O2 Delivery O2 Flow Rate FiO2 03/19/25 11:03 97.9 93 18 128/83 98 Room Air Physical Exam Dictation VITAL SIGNS REVIEWED GENERAL APPEARANCE: ALERT, ORIENTED X 3, NO ACUTE DISTRESS, WELL DEVELOPED, NOURISHED. HEAD AND FACE: NON-TRAUMATIC. EYES: PERRL, PINK CONJUNCTIVAS, EYELID NO TRAUMA, ANTERIOR CHAMBER WITH ARCUS SENILIS. EARS: PINNAS INTACT AND NO SIGNS OF TRAUMA OR ERYTHEMA EAR CANALS CLEAR AND NO DISCHARGE TM NO ERYTHEMA NOSE: NO DISCHARGE, NO BLEEDING. OROPHARYNX: MOUTH NORMAL, TONGUE PINK, PHARYNX CLEAR,NO ERYTHEMA, TONSILS NO EXUDATES, NO ABSCESSES NOTED, MUCOUS MEMBRANE MOIST NECK: SUPPLE, NON-TENDER, NO THYROMEGALY, NO MASSES, NO JVD, NO BRUITS BREAST:DEFERRED CHEST:NO TENDERNESS, NO CREPITUS, NO PARADOXICAL MOVEMENT, NO RETRACTIONS LUNGS:CLEAR, WELL-VENTILATED, SYMMETRIC, NO RALES, NO WHEEZING, NO RHONCHI, NO STRIDOR, GOOD BREATH SOUNDS BILATERALLY HEART: REGULAR RATE, REGULAR RHYTHM, NO MURMUR, NO GALLOPS VASCULAR: NO PERIPHERAL EDEMA, ABDOMEN: SOFT, POSITIVE BOWEL SOUNDS, NONDISTENDED, NO GUARDING, NONTENDER, NO REBOUND, NO MASSES NO HEPATOMEGALY, NO SPLENOMEGALY, NO OSORIO'S SIGN, NO HERNIAS. RECTAL: DEFERRED GENITAL: DEFERRED NEUROLOGICAL: PATIENT HAS RIGHT PTOSIS WITH NASOLABIAL FLATTENING. THERE WAS POSITIVE FOREHEAD INVOLVEMENT. OTHERWISE, NIH IS 0 MUSCULOSKELETAL: NECK NONTENDER, FULL RANGE OF MOTION, BACK NONTENDER, FULL RANGE OF MOTION, EXTREMITIES: NONTENDER, FULL RANGE OF MOTION SKIN: COLOR PINK, DRY, NO TURGOR, NO RASH, NO LACERATIONS, NO ABRASIONS, NO CONTUSIONS. LYMPHATIC: DEFERRED Results (Laboratory/Radiology) Labs Reviewed?: Yes ED Course ED Course Vital Signs Date Time Temp Pulse Resp B/P (MAP) Pulse Ox O2 Delivery O2 Flow Rate FiO2 03/19/25 11:03 97.9 93 18 128/83 98 Room Air 1120/NO LABS OR IMAGING INDICATED. PATIENT HAS BEEN PARTIALLY TREATED WITH PREDNISONE WE WILL COMPLETE TREATMENT WITH ACYCLOVIR INFORMATION ON CORNEAL SPARING AND MASSETER TONE MAINTENANCE. Medical Decision Making MDM MEDICAL DECISION-MAKING BASED ON EMPIRIC TREATMENT FOR A RIGHT CORREIA'S PALSY. PATIENT HAS BEEN PARTIALLY TREATED ON TUESDAY WITH PREDNISONE WE WILL TEACH CORNEAL SPARING WITH THE ARTIFICIAL TEARS AND OINTMENT AT BEDTIME WITH TAPE IN THE EYE CLOSED. ADDITIONALLY CHEWING GUM MULTIPLE TIMES ON THE RIGHT SIDE TO MAINTAIN MASSETER TONE FOLLOW UP WITH HER PRIMARY CARE DOCTOR. NO LABS OR IMAGING INDICATED DX & DISP Disposition: Discharge Departure Impression: Primary Impression: Right-sided Correia's palsy Condition: Stable Scripts Carboxymethylcellulose Sodium (Artificial Tears) 1 % Drops 15 ML OP AD, #15 ML ONE DROP RIGHT EYE EVERY 2 HOURS WHILE AWAKE. Prov: YOLY MATOS 03/19/25 Famciclovir (Famciclovir) 500 Mg Tablet 500 MG PO TID for 7 Days, #21 TAB Prov: YOLY MATOSP 03/19/25 Additional Instructions: FOLLOW-UP WITH PRIMARY CARE PROVIDER IN 1 TO 2 DAYS. TAKE MEDICATIONS DIRECTED HERE IN THE EMERGENCY ROOM. OKAY TO CONTINUE HOME MEDICATIONS UNLESS OTHERWISE DISCUSSED DURING YOUR VISIT IN THE EMERGENCY ROOM TODAY. RETURN TO YOUR NEAREST EMERGENCY ROOM IF SYMPTOMS WORSEN OR IF THERE IS NO IMPROVEMENT. CALL 911 IF YOU NEED IMMEDIATE ASSISTANCE. TAKE TYLENOL OR MOTRIN [id number] NEEDED AND IF NO CONTRAINDICATIONS ARE PRESENT. INCREASE ORAL HYDRATION. A WOUND CULTURE OR URINE CULTURE WAS ORDERED HERE IN THE EMERGENCY ROOM DEPARTMENT PLEASE FOLLOW-UP WITH PRIMARY CARE PROVIDER AND ADVISE THEM TO GET REPEAT PORTS FROM OUR FACILITY. IF YOU HAD ANY ARNOLDO WRAP/SPLINTS THAT WERE APPLIED HERE, PLEASE DO NOT REMOVE THEM UNTIL YOU SEE YOUR PRIMARY CARE OR SPECIALTY. CHEW GUM ON THE RIGHT SIDE OF YOUR FACE MULTIPLE TIMES A DAY USE ARTIFICIAL TEARS DROPS EVERY 2 HOURS WHILE AWAKE TO RIGHT EYE. USE ARTIFICIAL TEARS OINTMENT/[id number] AT BEDTIME AND TAPE RIGHT EYE SHUT. CONTINUE PREDNISONE AT HOME. TAKE FAMCICLOVIR DIRECTED UNTIL GONE. SEE YOUR PRIMARY CARE DOCTOR FOR FOLLOW UP Referrals: ANKUSH HARDING DO (PCP) Time of Disposition: 11:22 I have reviewed the case, and I agree with, Diagnosis and Plan YOLY MTAOS [facility] Mar 19, 2025 11:25
== END 2025-03-19 11:38 | disposition home or self-care (01) ==
LOC: EDH 11:02
DX: G51.0 Bell's palsy (principal); F41.9 Anxiety disorder, unspecified; F31.9 Bipolar disorder, unspecified; E11.9 Type 2 diabetes mellitus without complications; E78.00 Pure hypercholesterolemia, unspecified; I10 Essential (primary) hypertension; E66.9 Obesity, unspecified; F17.200 Nicotine dependence, unspecified, uncomplicated; Z88.8 Allergy status to other drugs, medicaments and biological substances; Z79.84 Long term (current) use of oral hypoglycemic drugs; Z79.899 Other long term (current) drug therapy; Z87.59 Personal history of other complications of pregnancy, childbirth and the puerperium; Z90.49 Acquired absence of other specified parts of digestive tract; Z90.710 Acquired absence of both cervix and uterus; Z68.37 Body mass index [BMI] 37.0-37.9, adult
CPT/HCPCS: 99283